=== PATIENT | female | born 1940 | race Caucasian/White ===

== ENCOUNTER 2016-08-19 12:40 | Inpatient (IN) | payer MEDICARE, OTHER ==
[~2016-08-19] VITALS: Ht 160 cm; Wt 60.4 kg
[~2016-08-19 12:40] MED LIST: CARV3.1260 PO; CETI5TAB20 PO; CLON-379 PO; FEBU40TA PO; MAXZ25 PO
[2016-08-19 13:45] VITALS: BP 160/87; PULSE 94; RESP 19
[2016-08-19] MEDS ORDERED: MAGNESIUM HYDROXIDE 30ML CUP PO PRN (14:30)
[2016-08-19] MEDS ORDERED: ZOLPIDEM 5 MG TAB PO PRN (14:30)
--- NOTE | 2016-08-19 14:49 | RADRPT ---
PROCEDURE: XR 1 view Chest. CLINICAL INDICATION: Chest pain. TECHNIQUE: Portable Single frontal view of the chest was obtained. COMPARISON: April 25, 2016. FINDINGS: The heart is normal in size. There are mild aortic calcifications. There is no focal consolidation. There is no pleural effusion. No pneumothorax is identified. The osseous structures are intact. IMPRESSION: No significant change. No evidence for acute cardiopulmonary disease. Aortic calcifications. Further findings as detailed above. RPTAT: PP .Juan F Covington MD, Date Time Electronically viewed and signed by .Juan F Covington MD, on 08/19/2016 14:48 .F/
[2016-08-19 14:54] LABS: BASOPHIL # 0.1 10^3/ul (0.0-0.1); BASOPHILS % 0.6 % (0.0-2.0); EOSINOPHILS # 0.1 10^3/ul (0.0-0.5); EOSINOPHILS % 0.6 % (0.0-7.0); HEMATOCRIT 32.9 % (37.0-47.0); HEMOGLOBIN 11.2 g/dl (12.0-16.0); LYMPHOCYTES # 0.9 10^3/ul (0.8-2.9); LYMPHOCYTES % 10.1 % (15.0-51.0); MEAN CORPUSCULAR HEMOGLOBIN 29.8 pg (29.0-33.0); MEAN CORPUSCULAR VOLUME 87.7 fl (82.0-101.0); MEAN PLATELET VOLUME 8.9 fl (7.4-10.4); MONOCYTE # 0.9 10^3/ul (0.3-0.9); MONOCYTES % 9.7 % (0.0-11.0); NEUTROPHIL # 7.3 10^3/ul (1.6-7.5); PLATELET COUNT 215 10^3/UL (140-440); RED BLOOD COUNT 3.75 10^6/ul (4.20-5.40); RED CELL DISTRIBUTION WIDTH 13.9 % (11.5-14.5); UNCORRECTED WBC 9.2 10^3/ul (4.8-10.8); WHITE BLOOD COUNT 9.2 10^3/ul (4.8-10.8)
[2016-08-19 14:58] LABS: CONDITION 1
[2016-08-19] MEDS: MEPERIDINE 25 MG INJ IM PRN (15:01)
[2016-08-19 15:18] LABS: POTASSIUM 4.1 mmol/L (3.5-5.1)
[2016-08-19 15:20] LABS: CREATININE 0.94 mg/dl (0.44-1.00)
[2016-08-19 15:21] LABS: CALCIUM 9.7 mg/dl (8.4-10.2); CHOL/HDL RATIO 5.4 RATIO
[2016-08-19 16:05] VITALS: BP 127/80; PULSE 85
[2016-08-19 16:28] VITALS: Ht 160 cm; Wt 60.4 kg
[2016-08-19 16:43] LABS: THYROID STIMULATING HORMONE 1.69 MIU/L (0.465-4.680)
[2016-08-19 17:56] LABS: ADD UMIC YES; URINE BILIRUBIN (Dip) 1+ (NEGATIVE); URINE BLOOD (Dip) 1+ (NEGATIVE); URINE COLOR LT. YELLOW (YELLOW); URINE GLUCOSE (Dip) NEGATIVE (NEGATIVE); URINE KETONES (Dip) 15 (NEGATIVE); URINE LEUKOCYTE ESTERASE (Dip) 1+ (NEGATIVE); URINE NITRITE (Dip) NEGATIVE (NEGATIVE); URINE TOTAL PROTEIN (Dip) 2+ (NEGATIVE); URINE UROBILINOGEN (Dip) 0.2 E.U./dL (0.1-1.0)
--- NOTE | 2016-08-19 18:10 | RADRPT ---
PROCEDURE: MRI lumbar spine CLINICAL INDICATION: L1 compression fracture. TECHNIQUE: An MRI of the lumbar spine was performed on a [employer] 3 yamilex scanner utilizing the followin g sequences: Sagittal T1 weighted, sagittal and dual echo axial T2 weighted, and sagittal T2 weighte d with fat saturation. COMPARISON: None. FINDINGS: Images are degraded by patient motion, though the study is of gross diagnostic quality. There is a normal lordosis of the lumbar spine. Vertebral body alignment is grossly normal. There is a chronic bow-tie compression type deformity of L1 with up to 60% vertebral body height loss centrally. Mild chronic compression of L4 is evident with approximately 20% vertebral body height loss. No acute com pression deformities are evident. The conus medullaris is visible at the L1-2 disk level. level, an d is normal in appearance. T12 - L1: There appears to be at least mild discogenic disease. Minimal bulging of the posterior a nnulus is seen without central canal stenosis or significant foraminal narrowing. L1 - L2: The disk is increased in height but diminished in T2-weighted signal intensity. Trace bul ging of the posterior annulus is evident, most pronounced left paracentral region where measures ivette roximately 2.5 mm. There is minimal effacement of the thecal sac and left lateral recess with possi ble contact of the traversing left L2 nerve root. The central canal is otherwise adequately patent. Minimal foraminal narrowing is seen. L2 - L3: There is moderate disk space narrowing and decreased T2-weighted signal intensity within t he disk. Anterior spondylosis is evident. A broad based osteophyte/disk complex together with liga mentum flavum hypertrophy and facet arthropathy results in moderate central stenosis with the AP ryan meter measuring just over 7 mm and mid transverse diameter just over 8 mm. There is mild to moderate bilateral foraminal narrowing. Note is made of minimal fatty infiltration of the filum terminalis at the mid L2 level, measuring under 2 mm. L3 - L4: The disk is increased slightly in height related to compression of L4 but is overall moder ately narrowed. A broad based osteophyte/disk complex together with marked facet arthropathy result s in at least moderately severe central stenosis. This is suboptimally evaluated on the axial image s due to severe patient motion but the mid transverse diameter appears to measure approximately 5 mm . Mild to moderate bilateral foraminal narrowing is seen. Acute inflammatory changes surround the le ft facet joint and paraspinal muscles. There is also evidence of edema in the right paraspinal musc les though slightly less than on the left. This may reflect sequelae from acute facet arthropathy t nacho the possibility of sequelae from trauma is raised due to the significant paraspinal muscle inv olvement. L4 - L5: Mild to moderate discogenic disease is noted. There is an osteophyte/disk complex, which t ogether with facet arthropathy and ligamentum flavum hypertrophy likely results in severe acquired c entral canal stenosis with the diameter canal measuring approximate 4 mm. This is suboptimally eval uated due to patient motion. There is moderate bilateral foraminal narrowing. Note is made of smal l joint effusions and the facets bilaterally. L5 - S1: The disk is normal in height but diminished in T2-weighted signal intensity. There is dif fuse bulging of the posterior annulus, which together with facet arthropathy and ligamentum flavum h ypertrophy results in moderate acquired central canal stenosis with the mid transverse diameter carmine l measuring 7 mm. There may be lateral recess narrowing with possible impingement traversing S1 ner ve roots. There is moderate bilateral foraminal narrowing. IMPRESSION: 1. Moderate - severe chronic compression fracture of L1 with up to 60% vertebral body height loss c entrally. There is a mild chronic compression fracture of L4 with approximate 20% vertebral body he ight loss. There is no retropulsion at either level. 2. There is evidence of significant T2-weighted hyperintensity within the paraspinal soft tissues a t the L3-4 level surrounding the facet joints bilaterally. While there is significant facet arthrop athy with joint effusions, the extensive paraspinal muscular edema suggests a traumatic component an d clinical correlation is suggested. 3. There is severe acquired central canal stenosis at L4-5 and at least moderately severe central s tenosis at L3-4, suboptimally evaluated due to patient motion. 4. There is moderate acquired central canal stenosis at L2-3. 5. There is moderate central canal stenosis at L5-S1 with suspected impingement traversing S1 nerve roots related to lateral recess narrowing. 6. Multilevel foraminal narrowing as outlined above. RPTAT: AA .Taisha Witt MD, Date Time Electronically viewed and signed by .Taisha Witt MD, on 08/19/2016 18:09 .H/
[2016-08-19 18:13] LABS: BACTERIA,URINE MODERATE; ICTOTEST NEGATIVE (NEGATIVE)
[2016-08-19 20:00] VITALS: BP 168/88; PULSE 89; RESP 18
[2016-08-20] MEDS: PANTOPRAZOLE (EC) 40 MG TAB PO SCH (06:00)
[2016-08-20 08:00] VITALS: BP 178/97; PULSE 93; RESP 18
[2016-08-20] MEDS: FEBUXOSTAT 40 MG TABLET PO SCH (08:13)
[2016-08-20] MEDS: ESCITALOPRAM 10 MG TAB PO SCH (08:14)
[2016-08-20] MEDS: HYDROCODONE/APAP (10/325) TAB PO PRN (08:17)
[2016-08-20] MEDS: MULTIVITAMINS THERAPEUTIC TAB PO SCH (08:22)
[2016-08-20] MEDS ORDERED: ATENOLOL 50 MG TAB PO SCH (09:00)
[2016-08-20] MEDS: TRIAMTERENE/HCTZ (37.5-25) CAP PO SCH (09:06)
[2016-08-20 12:00] VITALS: BP 144/75; PULSE 78; RESP 18
--- NOTE | 2016-08-20 14:59 | RADRPT ---
Vent Rate: 80 bpm RR Interval: 0 msec NJ Interval: 164 msec QRS Duration: 88 msec QT Interval: 380 msec QTC Interval: 438 msec P-R-T [place]er: 57 - -35 - 61 degrees Normal sinus rhythm Left axis deviation Abnormal ECG Electronically Signed By: Dalton Cross [id number]
[2016-08-20] MEDS: MEPERIDINE 25 MG INJ IM PRN (19:15)
[2016-08-20 20:00] VITALS: BP 166/82; PULSE 84; RESP 20
[2016-08-20 23:00] VITALS: BP 155/85; PULSE 76
--- NOTE | 2016-08-21 03:19 | HP ---
DATE OF ADMISSION: 08/19/2016 CHIEF COMPLAINT: Fall on out of bed resulted in injury. HISTORY OF PRESENT ILLNESS: The patient is in bed on , 08/17/2016, when she turned and fell out of bed, injuring her head, her neck and her shoulder. The patient was taken to the emerge [facility]cy room of [facility] where a CAT scan of the brain revealed no evidence of new injury, although there was evidence of changes of aging in her brain. There was no evidence of fracture in the neck. The patient was told to come to this office for followup. When she was seen on the day o f admission, she was found to be very unsteady on her feet. She was living alone, and it was felt t hat she was going to fall again and be unattended perhaps for hours. She is accordingly being admit zhanna at this time for neurological reevaluation and then for transfer to a [facility]. The patient accordingly presents to the hospital at this time for admission. For past history, review of systems, etc., please see previous admission dated 04/23/2016, . FAMILY HISTORY: Noncontributory. MEDICATIONS: She takes occasional Seldane for urticaria. She was taking aspirin but has discontinu ed aspirin because of gastric bleed. ALLERGIES: SHE IS ALLERGIC TO 1. TETRACYCLINE. 2. PENICILLIN. 3. CODEINE. 4. PERCODAN. 5. MORPHINE. PHYSICAL EXAMINATION: GENERAL: The patient is a well-developed white female who appears chronically but not acutely ill. VITAL SIGNS: Blood pressure 134/80, pulse 80, respirations 16, temperature 98.6. SKIN: No evidence of dermatitis. BREASTS: Bilateral fibrocystic disease of the breasts, no masses in the breasts. LYMPH NODES: No lymphadenopathy. NECK: Supple, and the thyroid is not palpable. HEENT: Head is symmetrical with no evidence of injury or deformity. EYES: PERRLA, EOM normal. Disks flat. Peripheral and forward vision grossly intact. Ears, nose, and throat clear. The patient has no headache. CHEST: Clear to A and P. ABDOMEN: Liver, kidneys, and spleen are not palpable. Bowel sounds are normal. There are no intra abdominal masses or bruits. GENITAL AND PELVIC: Deferred. The patient has had a pelvic examination 3 months ago with negative result. MUSCULOSKELETAL: No evidence of deformity or injury of the musculoskeletal system. NEUROLOGIC: DTRs are normal and equal bilaterally including biceps, triceps, wrists, knees, and ank les, plantars and flexors. No pathological reflexes are present. The patient is extremely unsteady on her feet and appears to be a serious fall risk. PERIPHERAL VASCULAR: No carotid or subclavian artery bruits. Femoral and dorsal pedal pulses are p resent bilaterally. IMPRESSION: 1. Cerebrovascular insufficiency. 2. Frequent falls. 3. History of upper gastrointestinal bleeding due to ulcer. 4. Fibrocystic disease of the breasts bilaterally. 5. History of hepatitis A. 6. History of hepatitis B and C. 7. History of carcinoma of the cervix status postoperative 1975. 8. Anemia. 9. Repeated episodes of syncope. Dictated By: VAN KENNEY/RHONDA Conf#: [id number] DID#: [id number]
[2016-08-21] MEDS: PANTOPRAZOLE (EC) 40 MG TAB PO SCH (05:26)
[2016-08-21] MEDS: MEPERIDINE 25 MG INJ IM PRN ×2 (05:34→12:32)
[2016-08-21 08:00] VITALS: BP 171/94; PULSE 82; RESP 18
[2016-08-21] MEDS: HYDROCODONE/APAP (10/325) TAB PO PRN (08:09)
[2016-08-21] MEDS: TRIAMTERENE/HCTZ (37.5-25) CAP PO SCH (08:10)
[2016-08-21] MEDS: ESCITALOPRAM 10 MG TAB PO SCH (08:10)
[2016-08-21] MEDS: MULTIVITAMINS THERAPEUTIC TAB PO SCH (08:10)
[2016-08-21] MEDS: FEBUXOSTAT 40 MG TABLET PO SCH (08:10)
[2016-08-21] MEDS: FERROUS FUMARATE (SR) TAB PO SCH (08:11)
[2016-08-21] MEDS: DILTIAZEM (CD) 120 MG CAP PO SCH (08:12)
[2016-08-21] MEDS ORDERED: BISACODYL 10 MG SUPP PR PRN (10:00)
[2016-08-21] MEDS: DOCUSATE SODIUM 100 MG CAP PO PRN (12:33)
--- NOTE | 2016-08-21 13:12 | RADRPT ---
PROCEDURE: CR right shoulder CLINICAL INDICATION: Shoulder pain TECHNIQUE: 2 views performed COMPARISON: No comparison available. FINDINGS: There is normal mineralization, architecture and alignment.No fracture or osseous lesion is identifi ed.The glenohumeral and acromioclavicular joints are unremarkable. The soft tissues are unremarkable . IMPRESSION: Unremarkable examination. RPTAT: HGDB .Phill Mercado MD, MD Date Time Electronically viewed and signed by .Phill Mercado MD, on 08/21/2016 13:11 .B/
--- NOTE | 2016-08-21 13:48 | RADRPT ---
PROCEDURE: US Carotids. CLINICAL INDICATION: Confusion. Syncope. TECHNIQUE: Multiple sonographic of the carotid bifurcation region and vertebral arteries were obta ined utilizing carmona scale, duplex and color-flow imaging. The images were reviewed on a PACS worksta tion. COMPARISON: Carotid ultrasound 04/27/2016. FINDINGS: Evaluation of the right carotid bifurcation region reveals mild atherosclerotic disease. Evaluation of the left carotid bifurcation region reveals minimal atherosclerotic disease. There is antegrade flow within the vertebral arteries bilaterally. RIGHT CAROTID MEASUREMENTS: Common Carotid Fkyojq43 (cm/sec) Internal Carotid Artery - proximal 45 (cm/sec) Internal Carotid Artery - mid41 (cm/sec) Internal Carotid Artery - (cm/sec) External Carotid Artery 53 (cm/sec) Vertebral Akxcyg69 (cm/sec) Internal Carotid/Common Carotid0.9 LEFT CAROTID MEASUREMENTS: Common Carotid Vewafe15 (cm/sec) Internal Carotid Artery - proximal 29 (cm/sec) Internal Carotid Artery - mid39 (cm/sec) Internal Carotid Artery - aqshrp61 (cm/sec) External Carotid Artery 76 (cm/sec) Vertebral Oqhefm56 (cm/sec) Internal Carotid/Common Carotid0.7 Validated velocity measurements with angiographic measurements. Velocity criteria are extrapolated f rom diameter data as defined by the Society of Radiologists in Ultrasound Consensus Conference. Radi ology 2003; 229;340-346. IMPRESSION: 1. No evidence for hemodynamically significant stenosis or occlusion. Mild right atherosclerotic pl aques with less than 50% stenosis. 2. Normal antegrade flow in the vertebral arteries bilaterally. RPTAT: HH .Elida Teixeira MD, Date Time Electronically viewed and signed by .Elida Teixeira MD, MD on 08/21/2016 13:48 .N/
--- NOTE | 2016-08-21 14:01 | RADRPT ---
PROCEDURE: MRI Brain without and with contrast. CLINICAL INDICATION: Confusion, history of hematoma. TECHNIQUE: An MRI of the brain was performed utilizing the following sequences: Sagittal T1-weigh zhanna, axial T2-weighted, axial FLAIR, axial T1, coronal GRE axial diffusion-weighted with ADC mapping . Following the uneventful administration of 10 cc Magnevist, postcontrast axial and coronal T1-weig hted images were obtained. Images were viewed on a PACS workstation. COMPARISON: Brain CT 05/02/2016. Brain MRI 04/26/2016. FINDINGS: No diffusion weighted abnormalities are seen to suggest the presence of acute ischemia or recent inf arct. There is no intracranial hemorrhage, mass effect, or midline shift. No extra-axial fluid col lection is seen. The ventricles and sulci are mildly enlarged indicative of volume loss. Interval near complete resolution of previously noted subarachnoid hemorrhage in the interhemispheri c fissure between the frontal lobes. There are moderate to marked confluent foci of T2 and FLAIR hyperintensity in the periventricular, d eep, and subcortical white matter as well as enedina and thalami, which are nonspecific in etiology but likely reflect chronic small vessel ischemic changes. Small T2 hyperintense foci are noted in bila teral lentiform nuclei which likely represent dilated perivascular spaces versus old lacunar infarct s. The gradient echo images reveal no areas of susceptibility artifact to suggest blood degradation products or abnormal calcification. No abnormal intraparenchymal, meningeal or ependymal enhancemen t is seen. No abnormal intracranial vascular flow voids are noted. The pituitary and sella reveal no abnormali ty. The suprasellar cistern is clear. The visualized paranasal sinuses demonstrate mild mucosal thi ckening mainly in ethmoid air cells. The mastoid air cells are clear. There is thinning of bilater al lens indicative of prior lens replacement. IMPRESSION: 1. No acute intracranial hemorrhage, infarction or mass. No intracranial enhancing abnormality. 2. Interval near complete resolution of previously noted subarachnoid hemorrhage in the interhemisp heric fissure between the frontal lobes. 3. Moderate to marked confluent white matter signal abnormality which likely represent chronic smal l vessel ischemic changes. 4. Bilateral lentiform nuclei which likely represent dilated perivascular spaces versus old lacunar infarcts. 4. Mild generalized cerebral and cerebellar volume loss. RPTAT: UU .Elida Teixeira MD, MD Date Time Electronically viewed and signed by .Elida Teixeira MD, MD on 08/21/2016 14:01 .N/
[2016-08-21 15:04] LABS: MICROALBUMIN 37.6 mg/dL
[2016-08-21] MEDS: CIPROFLOXACIN 500 MG TAB PO SCH (17:21)
[2016-08-21 17:25] VITALS: BP 129/77; PULSE 64; RESP 18
[2016-08-21 20:00] VITALS: BP 130/85; PULSE 75; RESP 16
--- NOTE | 2016-08-21 23:36 | CONS ---
DATE OF ADMISSION: 08/21/2016 DATE OF CONSULTATION: REFERRING PHYSICIAN: Van Orlando MD Thank you very much, Dr. Orlando, for asking me to see the patient with you. HISTORY OF PRESENT ILLNESS: The patient is a 76-year-old lady who admitted to [facility] after she fell down and injured her head, her neck, and shoulder. The patient went initiall y to [facility] on , where she had CT scan of her head. No evidence of injury, in wh ich I got a call about her by Dr. Orlando today to see her. CURRENT MEDICATIONS: Include: 1. Cipro 500 mg twice a day. 2. Dulcolax 10 mg once a day as needed. 3. Colace 100 mg once a day as needed. 4. Milk of Magnesia as needed. 5. Lexapro 10 mg once a day. 6. Dyazide as needed. 7. Protonix 40 mg once a day as needed. 8. Celebrex 20 mg once a day as needed. 9. Ambien 5 mg once at night as needed. 10. Demerol 25 mg once a day as needed. 11. [place] as needed. 12. Tylenol as needed. ALLERGIES: 1. TETRACYCLINE. 2. PENICILLIN. 3. CODEINE. 4. MORPHINE. 5. PERCODAN. PAST MEDICAL HISTORY: As above. PHYSICAL EXAMINATION: GENERAL: The patient is alert, awake, following simple commands; however, difficult to follow secon d step commands. CRANIAL NERVE EXAM: Cranial nerve II: Pupils equal on both sides, reactive to light. Cranial nerv es III, IV, and : Extraocular muscles intact. No nystagmus. Cranial nerve V: Equal sensation t o face. Cranial nerve VII: Symmetrical face. Cranial nerve VIII: Decreased hearing bilaterally. Cranial nerves IX and X: Palate elevates palate. Cranial nerve XI: Elevates shoulder 5/5. Crani al nerve XII: With straight tongue. MOTOR: Decreased right hand principal trainer, 4+/5. Sensation decreased for glove and sock area for light touc h and temperature. COORDINATION: Byhchx-sf-kgwv test intact. HEART: Regular rate and rhythm. LUNGS: Equal breath sounds. ABDOMEN: Soft, relaxed, nondistended, nontender. ASSESSMENT AND PLAN: 1. The patient is a 76-year-old lady with the possibility of underlying transient ischemic attack. I am going to start the patient on aspirin 81 mg for stroke prophylaxis and follow up the patient w ith carotid Doppler and 2D echocardiogram. 2. Status multiple falls. Will follow up the patient with fall precaution. 3. 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 The patient has it, whic h could contribute to multiple falls. Will follow up the patient with nerve conduction study and EM G as an outpatient for more evaluation and treatment. The patient also has a history of carcinoma i n the past and anemia, which could be a contribution to her neuropathy. 4. Gait difficulty. We will follow up the patient with physical therapy and rehabilitation, and am bulate her with assistance. 5. History of near syncope in the past. We will follow up the patient with auditory evoked potenti al and we will do that as an outpatient. Again, thank you, Dr. Orlando, for asking me to see the patient with you. Dictated By: EDDIE FOY MD NA/NTS Conf#: [id number] DID#: [id number] CC: VAN ORLANDO MD;*EndCC*
[2016-08-22] MEDS: MEPERIDINE 25 MG INJ IM PRN ×2 (03:10→20:19)
[2016-08-22] MEDS: PANTOPRAZOLE (EC) 40 MG TAB PO SCH (05:31)
[2016-08-22] MEDS: CIPROFLOXACIN 500 MG TAB PO SCH ×2 (05:31→17:30)
[2016-08-22 06:37] LABS: LYMPHOCYTES # 0.6 10^3/ul (0.8-2.9); MONOCYTE # 1.2 10^3/ul (0.3-0.9); PLATELET COUNT 293 10^3/UL (140-440)
[2016-08-22 06:45] LABS: CONDITION 1
[2016-08-22 08:00] VITALS: BP 140/65; PULSE 77; RESP 18
--- NOTE | 2016-08-22 08:24 | RADRPT ---
Echocardiogram Report Patient Name: ADARSH PEREZ Gender: Female Date: 1940 Study Date: 22-Aug-2016 Rock Wool Applicator: Mendy Chance [facility] Location: 603 Ref. Physician: EDDIE FOY Quality: Technically Difficult Study Procedures: Transthoracic echocardiogram with complete 2D, M-Mode, and doppler examination. Indications: Cerebrovascular Accident. 2D/M Mode Doppler Measurement Value Normal Ranges Measurement Value Normal Ranges LVIDd 2D 3.9 3.5 - 5.6 cm AV Peak Ovidio 0.9 m/sec LVIDs 2D 3.0 2.1 - 4.1 cm AV Peak PG 3.5 mmHg LVPWd 2D 1.0 0.6 - 1.1 cm LVOT Peak Ovidio 0.7 m/sec IVSd 2D 0.9 0.6 - 1.1 cm LVOT Peak PG 2.1 mmHg AoR Diam 2D 2.1 2.0 - 3.7 cm MV E Peak Ovidio 0.7 m/sec EDV 2D 66.2 cm3 MV A Peak Ovidio 1.0 m/sec ESV 2D 26.0 cm3 MV E/A 0.7 LA Dimen 2D 3.2 2.3 - 4.0 cm MV Decel Time 205 msec MV Decel [place] 3 MV E/A 0.7 Findings Left Ventricle: Normal left ventricular systolic function. Normal left ventricular cavity size. Normal left ventricular wall thickness. Ejection fraction is visually estimated at 65 %. Tissue Doppler/Mitral Doppler indices are consistent with impaired relaxation (Stage I diastolic dysfunction). E/E`=9. Normal e/e` ratio c/w normal LA pressure. Right Ventricle: Normal right ventricular size. Normal right ventricular systolic function. Left Atrium: The left atrium is normal in size. Right Atrium: The right atrium is normal in size. Mitral Valve: Mitral valve leaflets appear mildly thickened. Mild mitral valve regurgitation. Aortic Valve: Aortic sclerosis without stenosis. Tricuspid Valve: Normal appearance and function of the tricuspid valve with trace physiologic regurgitation. Normal right ventricular systolic pressure. Pericardium: Normal pericardium with no significant pericardial effusion. Aorta: Normal aortic root. IVC: Normal size and normal respiratory collapse consistent with normal right atrial pressure. Conclusions 1.Normal left ventricular systolic function. Normal left ventricular cavity size. Normal left ventricular wall thickness. Ejection fraction is visually estimated at 65 %. Tissue Doppler/Mitral Doppler indices are consistent with impaired relaxation (Stage I diastolic dysfunction). E/E`=9. Normal e/e` ratio c/w normal LA pressure. 2.The left atrium is normal in size. 3.Mitral valve leaflets appear mildly thickened. Mild mitral valve regurgitation. 4.Aortic sclerosis without stenosis. 5.Normal appearance and function of the tricuspid valve with trace physiologic regurgitation. Normal right ventricular systolic pressure. 6.Normal pericardium with no significant pericardial effusion. 7.Normal size and normal respiratory collapse consistent with normal right atrial pressure. 8.No Vegetation, masses, or thrombi seen. Electronically Signed By: Nathaniel Parisi 22-Aug-2016 08:23:31 -0800 Patient Name: ADARSH PEREZ Study Date: 22-Aug-2016 [id number]
[2016-08-22] MEDS: TRIAMTERENE/HCTZ (37.5-25) CAP PO SCH (08:37)
[2016-08-22] MEDS: FEBUXOSTAT 40 MG TABLET PO SCH (08:37)
[2016-08-22] MEDS: DILTIAZEM (CD) 120 MG CAP PO SCH (08:37)
[2016-08-22] MEDS: MULTIVITAMINS THERAPEUTIC TAB PO SCH (08:37)
[2016-08-22] MEDS: FERROUS FUMARATE (SR) TAB PO SCH (08:37)
[2016-08-22] MEDS: ESCITALOPRAM 10 MG TAB PO SCH (08:37)
[2016-08-22] MEDS: ASPIRIN (EC) 81 MG TAB PO SCH (08:39)
[2016-08-22 10:17] LABS: BASOPHILS % 0.1 % (0.0-2.0); EOSINOPHILS % 0.2 % (0.0-7.0); HEMATOCRIT 34.7 % (37.0-47.0); HEMOGLOBIN 11.5 g/dl (12.0-16.0); LYMPHOCYTES % 4.9 % (15.0-51.0); MEAN CORPUSCULAR HEMOGLOBIN 29.1 pg (29.0-33.0); MEAN CORPUSCULAR HGB CONC 33.2 g/dl (32.0-37.0); MEAN CORPUSCULAR VOLUME 87.5 fl (82.0-101.0); MEAN PLATELET VOLUME 9.3 fl (7.4-10.4); MONOCYTES % 8.8 % (0.0-11.0); NEUTROPHIL # 11.3 10^3/ul (1.6-7.5); RED BLOOD COUNT 3.96 10^6/ul (4.20-5.40); RED CELL DISTRIBUTION WIDTH 13.6 % (11.5-14.5); UNCORRECTED WBC 13.1 10^3/ul (4.8-10.8); WHITE BLOOD COUNT 13.1 10^3/ul (4.8-10.8)
[2016-08-22] MEDS: HYDROCODONE/APAP (10/325) TAB PO PRN (10:46)
[2016-08-22] MEDS: DOCUSATE SODIUM 100 MG CAP PO PRN (13:19)
--- NOTE | 2016-08-22 14:08 | RADRPT ---
PROCEDURE: XR Knees. CLINICAL INDICATION: Bilateral knee pain. TECHNIQUE: Total of six views. Frontal, oblique, and lateral views of both knees. COMPARISON: 03/01/2015. FINDINGS: There is no fracture or dislocation. Vascular calcifications are present consistent with atherosclerosis. There are degenerative changes with bilateral medial joint compartment narrowing and left lateral verónica int compartment narrowing. There is chondrocalcinosis. There is no lytic or blastic lesion. There is no radiopaque foreign body. IMPRESSION: 1. Moderate degenerative changes of both knees. 2. Chondrocalcinosis. 3. No change from 03/01/2015. RPTAT: QQ .Yo Adkins MD, MD Date Time Electronically viewed and signed by .Yo Adkins MD, MD on 08/22/2016 14:08 .R/
[2016-08-22 20:00] VITALS: BP 145/74; PULSE 66; RESP 18
[2016-08-23] MEDS: traMADol 50 MG TAB PO PRN ×2 (05:28→17:57)
[2016-08-23] MEDS: PANTOPRAZOLE (EC) 40 MG TAB PO SCH (05:28)
[2016-08-23] MEDS: CIPROFLOXACIN 500 MG TAB PO SCH ×2 (05:28→17:56)
[2016-08-23 06:28] LABS: BASOPHILS % 0.1 % (0.0-2.0); EOSINOPHILS % 0.2 % (0.0-7.0); HEMATOCRIT 35.1 % (37.0-47.0); HEMOGLOBIN 11.8 g/dl (12.0-16.0); LYMPHOCYTES # 0.5 10^3/ul (0.8-2.9); LYMPHOCYTES % 5.6 % (15.0-51.0); MEAN CORPUSCULAR HEMOGLOBIN 29.2 pg (29.0-33.0); MEAN CORPUSCULAR HGB CONC 33.5 g/dl (32.0-37.0); MEAN CORPUSCULAR VOLUME 87.1 fl (82.0-101.0); MEAN PLATELET VOLUME 8.6 fl (7.4-10.4); MONOCYTE # 0.8 10^3/ul (0.3-0.9); MONOCYTES % 8.7 % (0.0-11.0); NEUTROPHIL # 7.9 10^3/ul (1.6-7.5); NEUTROPHILS % 85.4 % (39.0-77.0); PLATELET COUNT 340 10^3/UL (140-440); RED BLOOD COUNT 4.02 10^6/ul (4.20-5.40); RED CELL DISTRIBUTION WIDTH 13.8 % (11.5-14.5); UNCORRECTED WBC 9.2 10^3/ul (4.8-10.8); WHITE BLOOD COUNT 9.2 10^3/ul (4.8-10.8)
[2016-08-23 06:33] LABS: CONDITION 1
[2016-08-23 06:51] LABS: POTASSIUM 3.5 mmol/L (3.5-5.1)
[2016-08-23 06:53] LABS: CREATININE 1.01 mg/dl (0.44-1.00)
[2016-08-23 07:30] VITALS: BP 142/86; RESP 16
[2016-08-23] MEDS: ASPIRIN (EC) 81 MG TAB PO SCH (09:00)
[2016-08-23] MEDS: DILTIAZEM (CD) 120 MG CAP PO SCH (09:05)
[2016-08-23] MEDS: TRIAMTERENE/HCTZ (37.5-25) CAP PO SCH (09:06)
[2016-08-23] MEDS: FEBUXOSTAT 40 MG TABLET PO SCH (09:06)
[2016-08-23] MEDS: ESCITALOPRAM 10 MG TAB PO SCH (09:06)
[2016-08-23] MEDS: FERROUS FUMARATE (SR) TAB PO SCH (09:06)
[2016-08-23] MEDS: MULTIVITAMINS THERAPEUTIC TAB PO SCH (09:06)
[2016-08-23] MEDS: ACETAMINOPHEN 325 MG TAB PO PRN (16:23)
[2016-08-23 20:00] VITALS: BP 135/79; PULSE 71; RESP 18
[2016-08-24] MEDS: CIPROFLOXACIN 500 MG TAB PO SCH ×2 (05:31→17:55)
[2016-08-24] MEDS: ACETAMINOPHEN 325 MG TAB PO PRN (05:31)
[2016-08-24] MEDS: PANTOPRAZOLE (EC) 40 MG TAB PO SCH (05:31)
[2016-08-24 07:32] VITALS: BP 137/77; RESP 20
[2016-08-24] MEDS: ESCITALOPRAM 10 MG TAB PO SCH (08:22)
[2016-08-24] MEDS: DILTIAZEM (CD) 120 MG CAP PO SCH (08:22)
[2016-08-24] MEDS: FERROUS FUMARATE (SR) TAB PO SCH (08:22)
[2016-08-24] MEDS: MULTIVITAMINS THERAPEUTIC TAB PO SCH (08:22)
[2016-08-24] MEDS: FEBUXOSTAT 40 MG TABLET PO SCH (08:22)
[2016-08-24] MEDS: ASPIRIN (EC) 81 MG TAB PO SCH (08:22)
[2016-08-24] MEDS: TRIAMTERENE/HCTZ (37.5-25) CAP PO SCH (08:22)
[2016-08-24] MEDS: traMADol 50 MG TAB PO PRN ×2 (11:26→18:54)
[2016-08-24 19:53] VITALS: BP 119/65; RESP 18
[2016-08-25] MEDS: PANTOPRAZOLE (EC) 40 MG TAB PO SCH (05:19)
[2016-08-25] MEDS: CIPROFLOXACIN 500 MG TAB PO SCH ×2 (05:19→18:17)
[2016-08-25 08:00] VITALS: BP 138/87; RESP 18
[2016-08-25] MEDS: ESCITALOPRAM 10 MG TAB PO SCH (08:26)
[2016-08-25] MEDS: DILTIAZEM (CD) 120 MG CAP PO SCH (08:26)
[2016-08-25] MEDS: FEBUXOSTAT 40 MG TABLET PO SCH (08:26)
[2016-08-25] MEDS: FERROUS FUMARATE (SR) TAB PO SCH (08:26)
[2016-08-25] MEDS: MULTIVITAMINS THERAPEUTIC TAB PO SCH (08:26)
[2016-08-25] MEDS: TRIAMTERENE/HCTZ (37.5-25) CAP PO SCH (08:27)
[2016-08-25] MEDS: ASPIRIN (EC) 81 MG TAB PO SCH (08:27)
[2016-08-25] MEDS: traMADol 50 MG TAB PO PRN (10:36)
[2016-08-25 20:14] VITALS: BP 136/85; RESP 14
[2016-08-26] MEDS: CIPROFLOXACIN 500 MG TAB PO SCH ×2 (05:12→18:14)
[2016-08-26] MEDS: PANTOPRAZOLE (EC) 40 MG TAB PO SCH (05:12)
[2016-08-26 07:25] VITALS: BP 138/84; RESP 16
[2016-08-26] MEDS: ESCITALOPRAM 10 MG TAB PO SCH (08:00)
[2016-08-26] MEDS: DILTIAZEM (CD) 120 MG CAP PO SCH (08:01)
[2016-08-26] MEDS: TRIAMTERENE/HCTZ (37.5-25) CAP PO SCH (08:01)
[2016-08-26] MEDS: FERROUS FUMARATE (SR) TAB PO SCH (08:02)
[2016-08-26] MEDS: traMADol 50 MG TAB PO PRN ×2 (08:02→14:19)
[2016-08-26] MEDS: FEBUXOSTAT 40 MG TABLET PO SCH (08:02)
[2016-08-26] MEDS: MULTIVITAMINS THERAPEUTIC TAB PO SCH (08:02)
[2016-08-26] MEDS: ASPIRIN (EC) 81 MG TAB PO SCH (08:03)
[2016-08-26 19:00] VITALS: BP 127/75; RESP 18
[2016-08-27] MEDS: PANTOPRAZOLE (EC) 40 MG TAB PO SCH (05:31)
[2016-08-27] MEDS: CIPROFLOXACIN 500 MG TAB PO SCH ×2 (05:31→18:44)
[2016-08-27 05:39] LABS: CREATININE 0.94 mg/dl (0.44-1.00)
[2016-08-27 05:40] LABS: CALCIUM 10.1 mg/dl (8.4-10.2); EOSINOPHILS # 0.1 10^3/ul (0.0-0.5); EOSINOPHILS % 0.7 % (0.0-7.0); HEMOGLOBIN 11.2 g/dl (12.0-16.0); MEAN CORPUSCULAR HEMOGLOBIN 29.4 pg (29.0-33.0); MEAN CORPUSCULAR HGB CONC 33.9 g/dl (32.0-37.0); MEAN CORPUSCULAR VOLUME 86.5 fl (82.0-101.0); MEAN PLATELET VOLUME 7.8 fl (7.4-10.4); MONOCYTE # 1.2 10^3/ul (0.3-0.9); MONOCYTES % 10.9 % (0.0-11.0); NEUTROPHIL # 8.5 10^3/ul (1.6-7.5); NEUTROPHILS % 79.4 % (39.0-77.0); PLATELET COUNT 481 10^3/UL (140-440); RED BLOOD COUNT 3.82 10^6/ul (4.20-5.40); RED CELL DISTRIBUTION WIDTH 14.1 % (11.5-14.5); UNCORRECTED WBC 10.7 10^3/ul (4.8-10.8); WHITE BLOOD COUNT 10.7 10^3/ul (4.8-10.8)
[2016-08-27 05:44] LABS: CONDITION 1
[2016-08-27 07:26] VITALS: BP 142/82; RESP 16
[2016-08-27] MEDS: MULTIVITAMINS THERAPEUTIC TAB PO SCH (08:23)
[2016-08-27] MEDS: FERROUS FUMARATE (SR) TAB PO SCH (08:23)
[2016-08-27] MEDS: FEBUXOSTAT 40 MG TABLET PO SCH (08:23)
[2016-08-27] MEDS: ESCITALOPRAM 10 MG TAB PO SCH (08:23)
[2016-08-27] MEDS: DILTIAZEM (CD) 120 MG CAP PO SCH (08:24)
[2016-08-27] MEDS: TRIAMTERENE/HCTZ (37.5-25) CAP PO SCH (08:24)
[2016-08-27] MEDS: traMADol 50 MG TAB PO PRN ×2 (11:16→18:47)
[2016-08-27 19:30] VITALS: BP 134/76; RESP 20
[2016-08-28] MEDS: PANTOPRAZOLE (EC) 40 MG TAB PO SCH (06:09)
[2016-08-28] MEDS: CIPROFLOXACIN 500 MG TAB PO SCH (06:10)
[2016-08-28 07:56] VITALS: BP 131/73; RESP 20
[2016-08-28] MEDS: FEBUXOSTAT 40 MG TABLET PO SCH (08:07)
[2016-08-28] MEDS: MULTIVITAMINS THERAPEUTIC TAB PO SCH (08:08)
[2016-08-28] MEDS: DILTIAZEM (CD) 120 MG CAP PO SCH (08:08)
[2016-08-28] MEDS: ESCITALOPRAM 10 MG TAB PO SCH (08:08)
[2016-08-28] MEDS: FERROUS FUMARATE (SR) TAB PO SCH (08:08)
[2016-08-28] MEDS: TRIAMTERENE/HCTZ (37.5-25) CAP PO SCH (08:09)
[2016-08-28] MEDS: traMADol 50 MG TAB PO PRN ×2 (10:44→19:29)
[2016-08-28 21:13] VITALS: BP 138/86; RESP 16
--- NOTE | 2016-08-29 00:06 | RADRPT ---
PROCEDURE: MR Knee. CLINICAL INDICATION: Right knee pain. TECHNIQUE: MRI scanner: Sagittal proton density, sagittal proton density fat saturation, coronal p roton density fat saturation, axial inversion recovery, axial oblique proton density fat saturation for the anterior cruciate ligament. COMPARISON: No prior studies are available for comparison. FINDINGS: Images are degraded by patient motion. No acute fracture, dislocation or marrow replacement process. The cruciate ligaments, extensor mechanism tendons and collateral ligamentous supporting structures are all normal. The posterolateral corner is intact. Fluid surrounds the popliteus tendon. Complex tear posterior horn and body of the medial meniscus. The lateral meniscus is unremarkable, to the limited extent visualized. All articular surfaces are normal and there is no chondromalacia. Mild to moderate Burns cyst containing osteochondral body. Mild joint effusion. IMPRESSION: 1. Images are degraded by patient motion, and consider repeat examination. 2. Complex tear of the posterior horn and body of the medial meniscus. 3. The lateral meniscus is unremarkable to the limited extent visualized. 4. Mild to moderate Burns cyst contains osteochondral body. 5. Mild joint effusion. RPTAT: UU Physician Nikolas Date Time Electronically viewed and signed by Physician Nikolas on 08/29/2016 00:06 RS/
[2016-08-29] MEDS: PANTOPRAZOLE (EC) 40 MG TAB PO SCH (06:04)
[2016-08-29 07:18] VITALS: BP 151/80; RESP 20
[2016-08-29 09:40] VITALS: BP 157/86; PULSE 75
[2016-08-29] MEDS: TRIAMTERENE/HCTZ (37.5-25) CAP PO SCH (09:42)
[2016-08-29] MEDS: MULTIVITAMINS THERAPEUTIC TAB PO SCH (09:42)
[2016-08-29] MEDS: FEBUXOSTAT 40 MG TABLET PO SCH (09:42)
[2016-08-29] MEDS: FERROUS FUMARATE (SR) TAB PO SCH (09:42)
[2016-08-29] MEDS: DILTIAZEM (CD) 120 MG CAP PO SCH (09:42)
[2016-08-29] MEDS: ESCITALOPRAM 10 MG TAB PO SCH (09:42)
[2016-08-29] MEDS: traMADol 50 MG TAB PO PRN (16:47)
[2016-08-29 19:42] VITALS: BP 143/76; RESP 20
[2016-08-30] MEDS: PANTOPRAZOLE (EC) 40 MG TAB PO SCH (06:08)
[2016-08-30 06:25] LABS: BASOPHILS % 0.3 % (0.0-2.0); EOSINOPHILS # 0.1 10^3/ul (0.0-0.5); EOSINOPHILS % 0.9 % (0.0-7.0); HEMOGLOBIN 11.2 g/dl (12.0-16.0); LYMPHOCYTES # 1.2 10^3/ul (0.8-2.9); LYMPHOCYTES % 10.2 % (15.0-51.0); MEAN CORPUSCULAR HEMOGLOBIN 29.2 pg (29.0-33.0); MEAN CORPUSCULAR VOLUME 85.7 fl (82.0-101.0); MEAN PLATELET VOLUME 7.5 fl (7.4-10.4); MONOCYTE # 0.9 10^3/ul (0.3-0.9); MONOCYTES % 7.9 % (0.0-11.0); NEUTROPHIL # 9.4 10^3/ul (1.6-7.5); NEUTROPHILS % 80.7 % (39.0-77.0); PLATELET COUNT 549 10^3/UL (140-440); RED BLOOD COUNT 3.85 10^6/ul (4.20-5.40); RED CELL DISTRIBUTION WIDTH 13.8 % (11.5-14.5); UNCORRECTED WBC 11.6 10^3/ul (4.8-10.8); WHITE BLOOD COUNT 11.6 10^3/ul (4.8-10.8)
[2016-08-30 06:40] LABS: CONDITION 1
[2016-08-30 06:42] LABS: POTASSIUM 3.8 mmol/L (3.5-5.1)
[2016-08-30 06:44] LABS: CREATININE 0.94 mg/dl (0.44-1.00)
[2016-08-30 07:42] VITALS: BP 137/80; RESP 16
[2016-08-30] MEDS: FERROUS FUMARATE (SR) TAB PO SCH (08:16)
[2016-08-30] MEDS: FEBUXOSTAT 40 MG TABLET PO SCH (08:16)
[2016-08-30] MEDS: ESCITALOPRAM 10 MG TAB PO SCH (08:16)
[2016-08-30] MEDS: TRIAMTERENE/HCTZ (37.5-25) CAP PO SCH (08:16)
[2016-08-30] MEDS: DILTIAZEM (CD) 120 MG CAP PO SCH (08:16)
[2016-08-30] MEDS: MULTIVITAMINS THERAPEUTIC TAB PO SCH (08:17)
[2016-08-30] MEDS: MAGNESIUM HYDROXIDE 30ML CUP PO PRN (08:17)
[2016-08-30] MEDS: traMADol 50 MG TAB PO PRN (08:19)
[2016-08-30] MEDS: CYCLOBENZAPRINE 10 MG TAB PO SCH ×2 (12:47→20:29)
[2016-08-30 20:23] VITALS: BP 143/69; RESP 18
--- NOTE | 2016-08-30 20:37 | PN ---
Date/Time of Note Date/Time of Note DATE: 08/30/16 TIME: 20:36 Assessment/Plan VTE Prophylaxis VTE Prophylaxis Intervention: other Lines/Catheters IV Catheter Type (from Nrsg): Saline Lock Assessment/Plan Chief Complaint/Hosp Course 1) debilitation 2) s/p fall - continue pain medication - PT - patient need placement Problems: Subjective 24 Hr Interval Summary Free Text/Dictation Patient complain of pain in bilateral shoulders Exam/Review of Systems Vital Signs Vitals Vital Signs Date Time Temp Pulse Resp B/P Pulse Ox O2 Delivery O2 Flow Rate FiO2 08/30/16 20:23 98.3 68 18 143/69 95 Intake and Output 08/29/16 08/29/16 08/30/16 15:00 23:00 07:00 Intake Total 720 ml 240 ml Output Total 300 ml Balance 720 ml -60 ml Exam Constitutional: frail, well developed Head: atraumatic, normocephalic Neck: supple Respiratory: clear to auscultation Cardiovascular: regular rate and rhythm Gastrointestinal: non-tender, soft Extremities: normal pulses Results Result Diagram: 08/30/16 0450 08/30/16 0450 Results 24 hrs Laboratory Tests Test 08/30/16 04:50 Anion Gap 19 H Basophils # 0.0 Basophils % 0.3 Blood Urea Nitrogen 32 H Calcium Level 10.0 Carbon Dioxide Level 28 Chloride Level 91 L Creatinine 0.94 Eosinophils # 0.1 Eosinophils % 0.9 Glucose Level 119 Hematocrit 33.0 L Hemoglobin 11.2 L Lymphocytes # 1.2 Lymphocytes % 10.2 L Mean Corpuscular Hemoglobin 29.2 Mean Corpuscular Hemoglobin Concent 34.0 Mean Corpuscular Volume 85.7 Mean Platelet Volume 7.5 Monocytes # 0.9 Monocytes % 7.9 Neutrophils # 9.4 H Neutrophils % 80.7 H Nucleated Red Blood Cells # 0.0 Nucleated Red Blood Cells % 0.0 Platelet Count 549 H Potassium Level 3.8 Red Blood Count 3.85 L Red Cell Distribution Width 13.8 Sodium Level 134 L White Blood Count 11.6 H Medications Medications Current Medications Multivitamins Therapeutic (Theragran) 1 tab DAILY PO Last administered on 08:17; Admin Dose 1 TAB; Start 08/20/16 at 09:00 Pantoprazole (Protonix Tab) 40 mg DAILY@06 PO Last administered on 08/30/16 06: 08; Admin Dose 40 MG; Start 08/20/16 at 06:00 Escitalopram Oxalate (Lexapro) 10 mg DAILY PO Last administered on 08/30/16 08: 16; Admin Dose 10 MG; Start 08/20/16 at 09:00 Febuxostat (Uloric) 40 mg DAILY PO Last administered on 08/30/16 08:16; Admin Dose 40 MG; Start 08/20/16 at 09:00 Triamterene/HCTZ (Dyazide) 1 cap DAILY PO Last administered on 08/30/16 08:16; Admin Dose 1 CAP; Start 08/20/16 at 09:00 Clonidine (Catapres) 0.1 mg Q4H PRN PO ELEVATED BLOOD PRESSURE; Start at 14:30 Acetaminophen (Tylenol Tab) 650 mg Q4H PRN PO PAIN AND OR ELEVATED TEMP Last administered on 08/24/16 05:31; Admin Dose 650 MG; Start 08/19/16 at 14:05 Docusate Sodium/ Ferrous Fumarate (Radha-Sequels) 1 tab DAILY PO Last administered on 08/30/16 08:16; Admin Dose 1 TAB; Start 08/21/16 at 09:00 Diltiazem HCl (Cardizem Cd) 120 mg DAILY PO Last administered on 08/30/16 08:16 ; Admin Dose 120 MG; Start 08/21/16 at 09:00 Bisacodyl (Dulcolax Supp) 10 mg DAILY PRN [place] CONSTIPATION; Start 08/21/16 at 10:00 Docusate Sodium (Colace) 100 mg BID PRN PO CONSTIPATION Last administered on at 13:19; Admin Dose 100 MG; Start 08/21/16 at 10:00 Magnesium Hydroxide (Milk Of Mag) 30 ml DAILY PRN PO CONSTIPATION Last administered on 08/30/16 08:17; Admin Dose 30 ML; Start 08/21/16 at 10:00 Tramadol HCl (Ultram) 50 mg Q4H PRN PO PAIN Last administered on 08/30/16 08:19 ; Admin Dose 50 MG; Start 08/23/16 at 03:00 Cyclobenzaprine HCl (Flexeril) 10 mg BID PO Last administered on 08/30/16 12:47 ; Admin Dose 10 MG; Start 08/30/16 at 12:00 MAGAN HANLEY Aug 30, 2016 20:37
[2016-08-31] MEDS: MAGNESIUM HYDROXIDE 30ML CUP PO PRN (04:36)
[2016-08-31] MEDS: PANTOPRAZOLE (EC) 40 MG TAB PO SCH (05:55)
[2016-08-31] MEDS: DOCUSATE SODIUM 100 MG CAP PO PRN (05:55)
[2016-08-31 07:45] VITALS: BP 112/64; RESP 14
[2016-08-31] MEDS: CYCLOBENZAPRINE 10 MG TAB PO SCH ×2 (09:02→20:03)
[2016-08-31] MEDS: ESCITALOPRAM 10 MG TAB PO SCH (09:02)
[2016-08-31] MEDS: MULTIVITAMINS THERAPEUTIC TAB PO SCH (09:02)
[2016-08-31] MEDS: FEBUXOSTAT 40 MG TABLET PO SCH (09:02)
[2016-08-31] MEDS: TRIAMTERENE/HCTZ (37.5-25) CAP PO SCH (09:03)
[2016-08-31] MEDS: DILTIAZEM (CD) 120 MG CAP PO SCH (09:04)
--- NOTE | 2016-08-31 11:19 | PN ---
Date/Time of Note Date/Time of Note DATE: 08/31/16 TIME: 11:18 Assessment/Plan VTE Prophylaxis VTE Prophylaxis Intervention: other Lines/Catheters IV Catheter Type (from Nrsg): Saline Lock Assessment/Plan Chief Complaint/Hosp Course 1) debilitation 2) s/p fall - continue pain medication - PT - patient need placement Problems: Subjective 24 Hr Interval Summary Free Text/Dictation Patient is still complaining of pain, where she fell Exam/Review of Systems Vital Signs Vitals Vital Signs Date Time Temp Pulse Resp B/P Pulse Ox O2 Delivery O2 Flow Rate FiO2 08/31/16 07:45 98.5 79 14 112/64 95 Intake and Output 08/30/16 08/30/16 08/31/16 15:00 23:00 07:00 Intake Total 800 ml 200 ml Balance 800 ml 200 ml Exam Constitutional: well developed Head: atraumatic, normocephalic Neck: supple Respiratory: clear to auscultation Cardiovascular: regular rate and rhythm Gastrointestinal: non-tender, soft Results Result Diagram: 08/30/16 0450 08/30/16 0450 Medications Medications Current Medications Multivitamins Therapeutic (Theragran) 1 tab DAILY PO Last administered on 09:02; Admin Dose 1 TAB; Start 08/20/16 at 09:00 Pantoprazole (Protonix Tab) 40 mg DAILY@06 PO Last administered on 08/31/16 05: 55; Admin Dose 40 MG; Start 08/20/16 at 06:00 Escitalopram Oxalate (Lexapro) 10 mg DAILY PO Last administered on 08/31/16 09: 02; Admin Dose 10 MG; Start 08/20/16 at 09:00 Febuxostat (Uloric) 40 mg DAILY PO Last administered on 08/31/16 09:02; Admin Dose 40 MG; Start 08/20/16 at 09:00 Triamterene/HCTZ (Dyazide) 1 cap DAILY PO Last administered on 08/31/16 09:03; Admin Dose 1 CAP; Start 08/20/16 at 09:00 Clonidine (Catapres) 0.1 mg Q4H PRN PO ELEVATED BLOOD PRESSURE; Start at 14:30 Acetaminophen (Tylenol Tab) 650 mg Q4H PRN PO PAIN AND OR ELEVATED TEMP Last administered on 08/24/16 05:31; Admin Dose 650 MG; Start 08/19/16 at 14:05 Docusate Sodium/ Ferrous Fumarate (Radha-Sequels) 1 tab DAILY PO Last administered on 08/30/16 08:16; Admin Dose 1 TAB; Start 08/21/16 at 09:00 Diltiazem HCl (Cardizem Cd) 120 mg DAILY PO Last administered on 08/31/16 09:04 ; Admin Dose 120 MG; Start 08/21/16 at 09:00 Bisacodyl (Dulcolax Supp) 10 mg DAILY PRN [place] CONSTIPATION; Start 08/21/16 at 10:00 Docusate Sodium (Colace) 100 mg BID PRN PO CONSTIPATION Last administered on 05:55; Admin Dose 100 MG; Start 08/21/16 at 10:00 Magnesium Hydroxide (Milk Of Mag) 30 ml DAILY PRN PO CONSTIPATION Last administered on 08/31/16 04:36; Admin Dose 30 ML; Start 08/21/16 at 10:00 Tramadol HCl (Ultram) 50 mg Q4H PRN PO PAIN Last administered on 08/30/16 08:19 ; Admin Dose 50 MG; Start 08/23/16 at 03:00 Cyclobenzaprine HCl (Flexeril) 10 mg BID PO Last administered on 08/31/16 09:02 ; Admin Dose 10 MG; Start 08/30/16 at 12:00 MAGAN HANLEY Aug 31, 2016 11:19
[2016-08-31] MEDS: FERROUS FUMARATE (SR) TAB PO SCH (12:30)
--- NOTE | 2016-08-31 14:52 | CONS ---
DATE OF ADMISSION: 08/21/2016 DATE OF CONSULTATION: ORTHOPEDIC CONSULTATION CHIEF COMPLAINT: Bilateral knee pain. HISTORY: The patient is a 76-year-old female with a past history of falls over the past several mon ths. She complains of pain in both knees. She apparently had presentation of more pain on the righ t and an MRI scan was performed of the right knee on 08/28/2016, which showed no fracture, mild effu ciro and a complex tear of posterior horn of the medial meniscus, most consistent with chronic degen erative tear, as there is no indication of an acute injury to the knee due to lack of significant ef fusion. At this time, the patient is comfortable. The knees show no effusion. The compartments ar e soft. Neurovascular status intact. The patient is able to move the knees with minimal pain. She is able to bear weight. IMPRESSION: Bilateral knee degenerative changes with degenerative tearing at the menisci and sprain . RECOMMENDATION: The patient can be managed conservatively. There is no indication for further inte rvention. Physical therapy, bracing, ice and possible steroid injection . Outpatient followup recommended. Dictated By: SWEETIE NATH/NTS Conf#: [id number] DID#: [id number] CC: VAN ORLANDO MD;*EndCC*
[2016-08-31 19:44] VITALS: BP 111/75; RESP 14
[2016-08-31] MEDS: traMADol 50 MG TAB PO PRN (21:23)
[2016-09-01] MEDS: PANTOPRAZOLE (EC) 40 MG TAB PO SCH (05:44)
[2016-09-01 07:41] VITALS: BP 112/71; RESP 20
[2016-09-01] MEDS: MULTIVITAMINS THERAPEUTIC TAB PO SCH (08:10)
[2016-09-01] MEDS: FERROUS FUMARATE (SR) TAB PO SCH (08:10)
[2016-09-01] MEDS: traMADol 50 MG TAB PO PRN ×2 (08:10→12:11)
[2016-09-01] MEDS: ESCITALOPRAM 10 MG TAB PO SCH (08:10)
[2016-09-01] MEDS: FEBUXOSTAT 40 MG TABLET PO SCH (08:10)
[2016-09-01] MEDS: TRIAMTERENE/HCTZ (37.5-25) CAP PO SCH (08:10)
[2016-09-01] MEDS: CYCLOBENZAPRINE 10 MG TAB PO SCH (08:10)
[2016-09-01] MEDS: DILTIAZEM (CD) 120 MG CAP PO SCH (08:11)
[2016-09-01 19:45] VITALS: BP 110/70; PULSE 82; RESP 16
--- NOTE | 2016-09-02 22:20 | DS ---
DATE OF ADMISSION: 08/21/2016 DATE OF DISCHARGE: 09/01/2016 PRINCIPAL DIAGNOSES: 1. Cerebrovascular insufficiency. 2. Frequent falls. 3. Repeated syncopal episodes. SECONDARY DIAGNOSES: 1. History of upper gastrointestinal hemorrhage due to a peptic ulcer. 2. Fibrocystic disease of the breast bilaterally. 3. History of hepatitis A, hepatitis B and C. 4. History of carcinoma of the cervix, status postoperative 1975. 5. Anemia. OPERATIONS AND PROCEDURES: X-ray of the right shoulder was negative. Chest x-ray was negative. Neurological consultation by Dr. Sinha was she had a possible underlying neuropathy, probably se condary to hepatitis, which could contribute to multiple falls. He also felt she had a gait difficu lty with history of near syncope in the past, and was going to follow her with auditory evoked reid [place] as an outpatient. The patient was seen in orthopedic consultation by Dr. Ng. He felt t hat she had bilateral knee degenerative changes with degenerative tearing of the menisci and sprain. He felt that she could be managed conservatively, that there was no medication for further interve ntion. He advised physical therapy, bracing, ice, and possible steroid injection. Outpatient follo wup was recommended. She had an echocardiogram, which revealed mild mitral valve regurgitation. Her ejection fraction wa s 65%. She had aortic sclerosis without stenosis, trace tricuspid valve regurgitation. Her EKG rev ealed normal sinus rhythm, left axis deviation. Her urinalysis, culture and sensitivity revealed la ctobacillus species, greater than 100,000. There were also mixed gram-positive organisms ranging fr om 20,000 to 30,000 felt to be contaminants. MRI of the right knee revealed a complex tear of the p osterior horn and body of the medial meniscus. There was mild to moderate Burns cyst and mild joint effusion. X-ray of the knees revealed moderate degenerative changes of both knees, chondrocalcinos is. MRI of the brain revealed no acute intracranial hemorrhage, infarction, or masses. No intracra nial enhancing abnormality. There was near complete resolution of a previously noted subarachnoid h emorrhage. There was moderate to marked confluent white matter signal abnormality, which likely rep resented chronic small vessel ischemic changes. There were bilateral lentiform nuclei, which likely represent dilated perivascular space versus old lacunar infarcts. There was mild generalized cereb ral and cerebellar volume loss. Ultrasound of the carotids revealed no evidence for hemodynamically significant stenosis or occlusion. MRI of the lumbar spine revealed moderate to severe compression fracture of L1, evidence of significant T2 weighted hypointensity within the paraspinal soft tissue s at the L3-4 level, severe acquired central canal stenosis at L4-L5, at least moderately severe arslan tral canal stenosis at L3-L4, moderate acquired central canal stenosis at L2-L3, and moderate centra l canal stenosis at L5-S1 with suspected impingement traversing S1 nerve roots related to the latera l recess narrowing. Multiple levels foraminal narrowing as outlined above. COMPLICATIONS: None. POST-HOSPITAL INSTRUCTIONS: The patient was transferred to a half-way facility for intensive occupational therapy and physiotherapy. CONDITION ON DISCHARGE: Fair. Dictated By: VAN KENNEY/RHONDA Conf#: [id number] DID#: [id number]
== END 2016-09-01 19:35 | DRG 69 ==
LOC: MS2 12:59 → OBSVTOIN 08-21 12:09
DX: I67.81 Acute cerebrovascular insufficiency (principal); G62.9 Polyneuropathy, unspecified; N05.9 Unspecified nephritic syndrome with unspecified morphologic changes; D64.9 Anemia, unspecified; R29.6 Repeated falls; N60.12 Diffuse cystic mastopathy of left breast; N60.11 Diffuse cystic mastopathy of right breast; R26.9 Unspecified abnormalities of gait and mobility; R55 Syncope and collapse; I34.0 Nonrheumatic mitral (valve) insufficiency; M71.21 Synovial cyst of popliteal space [Baker], right knee; M23.222 Derangement of posterior horn of medial meniscus due to old tear or injury, left knee; M23.221 Derangement of posterior horn of medial meniscus due to old tear or injury, right knee; Z86.19 Personal history of other infectious and parasitic diseases; Z87.11 Personal history of peptic ulcer disease; Z85.41 Personal history of malignant neoplasm of cervix uteri
CPT/HCPCS: 70552; 71010; 72148; 73721; 80048; 80061; 81001; 81003; 82043; 82140; 82947; 83036; 84443; 85025; 85651; 86592; 87086; 93005; 93306; 93880; 97001; 97110; 97116; 97530; 99217; G0378; J2175